=== PATIENT | female | born 1945 | race Caucasian/White ===

== ENCOUNTER 2017-07-18 08:53 | Day surgery (SDC) | payer MEDICAID ==
[2017-07-18 10:07] VITALS: BMI 31.2
[2017-07-18] MEDS ORDERED: Lactated Ringer's 1,000 ML IV ONE ×3 (10:45→13:05)
[2017-07-18] MEDS ORDERED: Propofol 10 mg/ml Inj (20 ML) ONE (12:59)
--- NOTE | 2017-07-18 13:02 | CP.SDSHP ---
Same Day Surgery H & P - History Proposed Procedure: colonoscopy Pre-Op Diagnosis: family history of colon cancer - Previous Medical/Surgical History Cardiac: Hypertension Endocrine/Metabolic: Diabetes - Allergies Allergies: Allergies No Known Allergies Allergy (Verified 07/18/17 10:02) - Physical Exam General Appearance: NAD Vital Signs: Vital Signs 07/18/17 10:16 Temperature 99.1 F Pulse Rate 71 Respiratory 19 Rate Blood Pressure 145/84 O2 Sat by Pulse 97 Oximetry Mental Status: Alert & Oriented x3 Neuro: WNL Heart: WNL Lungs: WNL GI: WNL - {Optional Preform as Required} Abdomen: WNL - Impression Pt. Evaluated Today:Candidate for Anesthesia & Procedure: Yes - Date & Time Date: 07/18/17 Time: 13:02 Short Stay Discharge - Short Stay Discharge Admitting Diagnosis/Reason for Visit: FAMILY HISTORY OF MALIGNANT NEOPLASM OF DIGESTIVE Disposition: HOME/ ROUTINE Referrals: FAMILY PROVIDER,NO [Primary Care Provider] -
[2017-07-18 13:48] VITALS: TEMP 98.4
[2017-07-18 14:19] VITALS: BP 141/73; PULSE 76; RESP 14; O2SAT 97
== END 2017-07-18 15:39 | disposition home or self-care (01) ==
LOC: C.ENDO 08:53
PROVIDERS: ATTEND Internal Medicine Gastroenterology
DX: Z12.11 Encounter for screening for malignant neoplasm of colon (principal); Z80.0 Family history of malignant neoplasm of digestive organs; K64.8 Other hemorrhoids; I10 Essential (primary) hypertension; E11.9 Type 2 diabetes mellitus without complications
CPT/HCPCS: 45378; 82948; J2704; J7120